=== PATIENT | female | born 1960 | race Caucasian/White ===

== ENCOUNTER 2025-07-05 06:34 | Day surgery (SDC) | payer OTHER, SELFPAY | END 2025-07-05 10:15 | disposition home or self-care (01) | LOC: GI 06:34 | PROVIDERS: ATTENDING PHYSICIAN Internal Medicine Gastroenterology | DX: Z12.11 Encounter for screening for malignant neoplasm of colon (principal); K57.30 Diverticulosis of large intestine without perforation or abscess without bleeding; K44.9 Diaphragmatic hernia without obstruction or gangrene; R12 Heartburn; R11.10 Vomiting, unspecified; R13.10 Dysphagia, unspecified; Z85.038 Personal history of other malignant neoplasm of large intestine; Z98.0 Intestinal bypass and anastomosis status; Z80.0 Family history of malignant neoplasm of digestive organs | CPT/HCPCS: 43235; G0105 ==